=== PATIENT | female | born 1965 | race Caucasian/White ===

== ENCOUNTER → 2020-12-15 | Outpatient (CLI) | payer BC ==
--- NOTE | 2020-12-18 23:03 | MR ---
EXAMINATION TYPE: MR lumbar spine wo con DATE OF EXAM: 12/15/2020 COMPARISON: None HISTORY: Chronic radicular lumbar pain, pain in legs CONTRAST: 0 mL intravenous Gadavist. TECHNIQUE: Multiplanar, multisequence images of the lumbar spine were acquired. FINDINGS: Cord terminates L1-L2. Disc desiccation is present at L2-3 and L3-4. L5-S1: No significant disc bulge or disc herniation. No spinal canal stenosis. No foraminal stenosi s. Mild facet hypertrophy is present. L4-L5: Minimal disc bulge with anterior thecal sac contact. No AP spinal canal stenosis is present. No foraminal stenosis. Facet hypertrophy is present with some ligamentum flavum laxity. This has kita e posterior lateral thecal sac compression. No lateral canal stenosis is present. L3-L4: Broad-based disc bulge has mild anterior thecal sac flattening. No AP spinal canal stenosis is present. Some disc bulging into the left foramen is present with mild left foraminal narrowing. No nerve root impingement is evident. L2-L3: Disc desiccation is present. There is narrowing of the disc height. Broad-based disc bulge has mild anterior thecal sac compression. No AP spinal canal stenosis is present. Minimal left foraminal narrowing is present from disc bulging. No nerve root impingement is evident. Some mild Modic type I anterior endplate changes present. Note is made of some anterior disc bulging. L1-L2: No significant disc bulge or disc herniation. No spinal canal stenosis. No foraminal stenosi s. T12-L1: No significant disc bulge or disc herniation. No spinal canal stenosis. No foraminal stenos is. IMPRESSION: 1. Broad-based disc bulging with disc desiccation and mild loss of disc height at L2-L3. This has mil d anterior thecal sac compression and mild left foraminal narrowing. 2. Mild disc bulging L3-4 with minimal anterior thecal sac flattening without spinal canal stenosis. Disc desiccation is present at this level.
== END | disposition home or self-care (01) ==
LOC: RADMRIMAIN 06:30
PROVIDERS: ATTEND Internal Medicine
DX: M51.26 Other intervertebral disc displacement, lumbar region (principal); M99.73 Connective tissue and disc stenosis of intervertebral foramina of lumbar region
CPT/HCPCS: 72148